=== PATIENT | male | born 1975 | race Caucasian/White ===

== ENCOUNTER 2016-05-31 15:13 | Emergency (ER) | payer OTHER ==
[~2016-05-31] VITALS: Ht 167.6 cm; Wt 77.1 kg
[~2016-05-31 15:13] MED LIST: ADVAIR DISKUS 21 DSK INH; ADVAIR DISKUS1 UNIT INH; ALBUTEROL 3 ML3 ML INH; ALBUTEROL0.09 MG/A1; ALBUTEROL0.09 MG/A1 INH; AMBIEN 10MG10 MG PO; AMBIEN10 MG PO; AMOXIL 875 MG875 MG PO; ATIVAN1 MG PO; AZITHROMYCIN250 MG PO; BIOTIN1000 MCG PO; CLONAZEPAM1 M2 PO; CLONAZEPAM1 MG PO; LEADER MELATONIN5 MG PO; MOTRIN 600 MG600 MG PO; MULTIVITAMIN1 TAB PO; PREDNISONE 10MG10 M1 PO; PREDNISONE 20MG20 MG PO; PREDNISONE10 MG PO; REFRESH TEARS 330 ML OD; SENNA CON/DOCUS1 TAB PO; SINGULAIR10 MG PO; Senokot S PO; TESSALON PERLE100 MG PO; VENTOLIN1 PUF INH; WELLBUTRIN XL300 M2 PO; WELLBUTRIN XL300 MG PO
[2016-05-31 15:25] VITALS: BP 135/77
[2016-05-31] MEDS ORDERED: VENTOLIN HFA18 GM INH (16:43)
--- NOTE | 2016-05-31 16:44 | ED DYSPNEA/ASTHMA COMPLAINT ---
History of Present Illness General Chief Complaint: General Adult Stated Complaint: PT NEEDS RX FOR INHALER Source: patient Exam Limitations: no limitations Vital Signs & Intake/Output Vital Signs & Intake/Output Vital Signs Date Time Temp Pulse Resp B/P Pulse O2 O2 Flow FiO2 Ox Delivery Rate 05/31 1525 98.4 81 18 135/77 98 Room Air Allergies Coded Allergies: No Known Allergies (09/14/15) Reconcile Medications Albuterol Sulfate (Albuterol Sulfate Hfa) 90 MCG HFA.AER.AD 2 PUFF INH Q4-6 PRN PRN SHORTNESS OF BREATH 90 MCG PER PUFF Albuterol Sulfate (Proventil) 2.5 MG/3 ML NEB 3 ML INH Q4P PRN SHORTNESS OF BREATH Albuterol Sulfate (Ventolin Hfa) 90 MCG HFA.AER.AD 2 PUF INH Q4-6 PRN PRN WHEEZING Amoxicillin (Amoxil 875 MG Tablets) 875 MG TAB 1 TAB PO BID bronchitis Benzonatate (Tessalon Perle) 100 MG SGL 1 CAP PO TID PRN COUGH Bupropion HCl (Wellbutrin XL) 300 MG TAB.ER.24H 1 TAB PO QAM DEPRESSION/ ANXEITY Bupropion Hydrochloride (Wellbutrin XL) 300 MG T24 1 TAB PO DAILY MENTAL HEALTH (Reported) Clonazepam 1 MG TABLET 0.5 TAB PO BIDPRN PRN ANXIETY Clonazepam 1 MG TABLET 1 TAB PO DAILY PRN ANXIETY Docusate Sodium/Senna (Senna S) 50 MG/8.6 MG TAB 1 TAB PO BID PRN CONSTIPATION (Reported) Fluticasone-Salmeterol (Advair 500-50 Diskus) 500 MCG-50 MCG/DOSE BLST.W.DEV 1 PUF INH BID asthma Ibuprofen (Motrin 600 MG Tab) 600 MG TAB 1 TAB PO Q6P PRN fever Multivitamin (Multiple Vitamins) 1 EACH TABLET 1 TAB PO DAILY SUPPLEMENT ( Reported) Prednisone 20 MG TAB 1 TAB PO BID BRONCHOSPASM Zolpidem Tartrate (Ambien 10MG) 10 MG TAB 1 TAB PO QPM insomnia Zolpidem Tartrate (Ambien) 10 MG TAB 1 TAB PO QHS PRN INSOMINIA Triage Note: PT STATES HE NEEDS A PERSCRIPTION FOR HIS INHALER (VENTOLIN) STATES HE IS DUE FOR A CHECK UP WITH HIS DR AND HIS DR URMILA PERSCRIBE THE INHALER UNTIL HE GETS THE CHECKUP. RA SATS 98% AT THIS TIME. Triage Nurses Notes Reviewed? yes Onset: Gradual Duration: constant Timing: remote history Severity: mild Activities at Onset: none HPI: Patient is a 40-year-old male with a past medical history of asthma who presents emergency room with requests of medication refill of Ventolin which she states his primary care doctor has not filled this prescription. Patient denies any current shortness of breath fever chills cough wheezing and is otherwise without complaints. Patient is concerned that a fianc future asthma attack he has no medications (LÁZARO KEENE) Past History Travel History Traveled to [place] past 21 day No Medical History Any Pertinent Medical History? see below for history Neurological: JAQUELINE LE SYNDROME EENT: NONE Cardiovascular: NONE Respiratory: asthma Gastrointestinal: NONE Hepatic: NONE Renal: NONE Musculoskeletal: NONE Psychiatric: anxiety, depression Endocrine: NONE Blood Disorders: NONE Cancer(s): NONE TEAM PSYCHOLOGIST/Reproductive: NONE History of MRSA: No History of VRE: No History of CDIFF: No Surgical History Surgical History: non-contributory Psychosocial History Who do you live with Patient/Self Services at Home None What is your primary language Arabic Tobacco Use: Current Daily Use Daily Tobacco Use Amount/Type: =< 4 Cigarettes daily Family History Family History, If Any: Relation not specified for: No significant family history Hx Contributory? No (LÁZARO KEENE) Review of Systems Review of Systems Constitutional: Reports: no symptoms. EENTM: Reports: no symptoms. Respiratory: Reports: no symptoms. Cardiovascular: Reports: no symptoms. GI: Reports: no symptoms. Genitourinary: Reports: no symptoms. Musculoskeletal: Reports: no symptoms. Skin: Reports: no symptoms. Neurological/Psychological: Reports: no symptoms. Hematologic/Endocrine: Reports: no symptoms. Immunologic/Allergic: Reports: no symptoms. All Other Systems: Reviewed and Negative (LÁZARO KEENE) Physical Exam Physical Exam Respiratory: normal breath sounds, chest non-tender, no respiratory distress Comments: Well-developed well-nourished person in no acute distress HEENT: Normal EENT exam, Neck: Supple, no lymphadenopathy, normal range of motion without pain or tenderness Back: Nontender, no CVA tenderness. Cardiovascular: Regular rate and rhythms no murmurs rubs or gallops, normal JVP Respiratory: Chest nontender. No respiratory distress.breath sounds clear to auscultation bilaterally Abdomen: Soft, nontender nondistended, no appreciable organomegaly. Normal bowel sounds. No ascites Extremity: No edema, no calf tenderness to palpation, normal and equal pulses. Neuro: Alert oriented x3, motor sensory normal, Skin: No appreciable rash on exposed skin, skin is warm and dry. Psych: Mood and affect is normal, memory and judgment is normal. Core Measures ACS in differential dx? No Severe Sepsis Present: No Septic Shock Present: No (LÁZARO KEENE) Progress Differential Diagnosis: asthma, AMI, bronchitis, costochondritis, CHF, COPD, musculoskeletal pain, pericarditis, pulmonary embolism, pneumonia, pneumothorax, rib fracture, unstable angina Plan of Care: Patient currently presents to emergency with no complaints and is only requesting Ventolin. Clear lungs to auscultation Initial ED EKG: none (LÁZARO KEENE) Departure Departure Disposition: HOME OR SELF CARE Condition: Stable Clinical Impression Primary Impression: Asthma Referrals: EYAD THAO,PRICILA Jones (PCP/Family) Additional Instructions: As discussed begin the prescription of Ventolin as directed for future asthma exacerbations. Prescriptions waiting at [facility] pharmacy. If symptoms worsen return to emergency room. Follow-up with primary care doctor as directed Departure Forms: Customer Survey General Discharge Information Prescriptions: Current Visit Scripts Albuterol Sulfate (Ventolin Hfa) 2 PUF INH Q4-6 PRN PRN WHEEZING #1 INHAL Ref 1 (LÁZARO KEENE) PA/STEAM B[employer] PRESS TENDER Co-Sign Statement Statement: ED Attending supervision documentation- [] I saw and evaluated the patient. I have also reviewed all the pertinent lab results and diagnostic results. I agree with the findings and the plan of care as documented in the PA's/STEAM BONE PRESS TENDER's documentation. x I have reviewed the ED Record and agree with the PA's/STEAM BONE PRESS TENDER's documentation. [] Additions or exceptions (if any) to the PAs/STEAM BONE PRESS TENDER's note and plan are summarized below: [] (RAFAEL THAO,SHANNON) Critical Care Note Critical Care Note Critical Care Time: non-applicable (LÁZARO KEENE)
== END 2016-05-31 16:58 ==
LOC: ERH 15:13
DX: J45.909 Unspecified asthma, uncomplicated (principal); Z72.0 Tobacco use
CPT/HCPCS: 99281